=== PATIENT | female | born 1960 | race Caucasian/White ===

== ENCOUNTER 2019-01-28 09:12 | Outpatient (CLI) | payer MEDICAID ==
[~2019-01-28] VITALS: Ht 154.9 cm; Wt 88.0 kg
[~2019-01-28 09:12] MED LIST: CIPROFLOXACIN500 M2 ORAL; NORCO 5-325 TA1 EACH ORAL; ZOFRAN4 MG ORAL
[2019-01-28 12:12] VITALS: BP 152/78
[2019-01-28] MEDS ORDERED: COLACE100 MG ORAL (12:12)
[2019-01-28] MEDS ORDERED: AMLODIPINE BESYL5 MG ORAL (12:12)
--- NOTE | 2019-01-28 16:30 | Consultation ---
DATE OF CONSULTATION: 01/28/2019 GASTROENTEROLOGY CONSULTATION CONSULTING PHYSICIAN: Darnell Wheeler M.D. CHIEF COMPLAINT: Referral for abdominal pain. HISTORY OF PRESENT ILLNESS: This is a very pleasant 58-year-old female with complaint of epigastric abdominal pain, gas, bloating, was seen by GI. Apparently, had an endoscopy, colonoscopy few years ago. The patient does not recall exactly when, maybe 3 or 4 years ago. She had H. pylori positive, status post treatment. She had a recent CT, showed evidence of mesenteric panniculitis and the patient was referred to us for evaluation. The patient denies any fevers or chills. Denies any nausea or vomiting. Denies any dysphagia or odynophagia. Denies any melena or hematochezia. PAST MEDICAL HISTORY: 1. Hypertension. 2. GERD. 3. Depression. 4. H. pylori gastritis. 5. Obesity. PAST SURGICAL HISTORY: None. MEDICATIONS: Please see medication reconciliation list. FAMILY HISTORY: No family history of GI malignancies. SOCIAL HISTORY: The patient denies any tobacco, alcohol, or drug abuse. ALLERGIES: No known allergies. REVIEW OF SYSTEMS: Positive for abdominal pain and GERD. PHYSICAL EXAMINATION: VITAL SIGNS: Temperature 97.6, blood pressure is 150/78, pulse is 74, respirations 20. HEENT: Normocephalic and atraumatic. Sclerae anicteric. NECK: Supple. No evidence of obvious lymphadenopathy. CARDIOVASCULAR: Regular rate and rhythm. Plus S1 and S2. No obvious murmur. LUNGS: Decreased breath sounds bilaterally based on supine exam. ABDOMEN: Soft. Minimal tenderness to palpation in periumbilical area and epigastric area. No rebound. No guarding. No peritoneal sign. EXTREMITIES: No cyanosis. No clubbing. No edema. ASSESSMENT AND PLAN: 1. History of H. pylori positive, status post treatment and the patient was apparently tested as she is stating that she was told that she is cleared. 2. Abdominal pain mesenteric panniculitis. The patient was given a trial of the antibiotics Flagyl. The patient was told to bring us the records of the endoscopy and colonoscopy to evaluate to see if she needs repeat endoscopy and or colonoscopy. The patient to come back in the office with those reports in a month or so and at that point, we will decide if she needs any GI procedures. Darnell Wheeler M.D. DR: LOULOU JOB#: [id number] CC:
== END 2019-01-28 11:12 | disposition home or self-care (01) ==
LOC: PAN 09:12
DX: R10.9 Unspecified abdominal pain (principal); I10 Essential (primary) hypertension; K21.9 Gastro-esophageal reflux disease without esophagitis; F32.9 Major depressive disorder, single episode, unspecified; E66.9 Obesity, unspecified; R14.0 Abdominal distension (gaseous); K65.4 Sclerosing mesenteritis
CPT/HCPCS: G0463

== ENCOUNTER 2020-04-22 14:03 | Outpatient (CLI) | payer MEDICAID ==
[~2020-04-22 14:03] MED LIST changes: +AMLODIPINE BESYL5 MG ORAL; +COLACE100 MG ORAL
[2020-04-22 14:12] VITALS: BP 149/79
--- NOTE | 2020-04-22 14:28 | General Progress Note ---
Subjective ROS Limited/Unobtainable: Yes Allergies: Coded Allergies: No Known Allergies (Unverified , 06/13/15) Objective Last 24 Hour Vital Signs Date Time Temp Pulse Resp B/P (MAP) Pulse Ox O2 Delivery O2 Flow Rate FiO2 04/22/20 14:12 97.4 86 16 149/79 94 General Appearance: alert EENT: normal ENT inspection Neck: supple Cardiovascular: normal rate Respiratory/Chest: lungs clear Abdomen: hypoactive bowel sounds, distended, tender Extremities: non-tender Assessment/Plan Assessment/Plan: 1. Hypertension. 2. GERD. 3. Depression. 4. H. pylori gastritis. 5. Obesity. 6. Mesenteric panniculitis cipro and flagyl CT RTC PRN Darnell Wheeler MD Apr 22, 2020 14:28
== END 2020-04-22 14:51 | disposition home or self-care (01) ==
LOC: PAN 14:03
DX: K21.9 Gastro-esophageal reflux disease without esophagitis (principal); I10 Essential (primary) hypertension; F32.9 Major depressive disorder, single episode, unspecified; K29.70 Gastritis, unspecified, without bleeding; E66.9 Obesity, unspecified; K65.4 Sclerosing mesenteritis; B96.81 Helicobacter pylori [H. pylori] as the cause of diseases classified elsewhere
CPT/HCPCS: 99203